=== PATIENT | female | born 1950 | race Two or more races ===

== ENCOUNTER 2024-10-10 15:37 | Emergency (ER) | payer MEDICARE, OTHER, SELFPAY ==
[2024-10-10 15:47] VITALS: BP 183/99
[2024-10-10 16:24] VITALS: BP 143/83
[2024-10-10 16:32] LABS: Hematocrit 39.6 % (37.0-47.0); Hemoglobin 13.6 g/dL (12.0-16.0); Mean Corp Hgb Conc. 34.3 g/dL (33.0-37.0); Mean Corpuscular Volume 83.4 fL (81.0-99.0); Nucleated Red Blood Cells % 0 %; Platelet Count 232 10^3/uL (130-400); Red Cell Dist. Width 13.6 % (11.5-14.5)
[2024-10-10 16:51] LABS: INR 0.97; PT 13.2 Sec (11.4-14.6)
[2024-10-10 16:52] LABS: APTT 28.1 Sec (23.4-35.0)
[2024-10-10 16:55] LABS: D-Dimer < 0.27 ug/mlFEU (0.00-0.50)
[2024-10-10 16:56] LABS: ALT (SGPT) 22 U/L (0-35); AST (SGOT) 22 U/L (14-36); Albumin 4.2 g/dl (3.5-5.0); Alkaline Phosphatase 80 U/L (38-126); Blood Urea Nitrogen 28 mg/dl (7-17); Calcium 9.7 mg/dl (8.4-10.2); Carbon Dioxide 27 mmol/L (22-30); Chloride 106 mmol/L (98-107); Glucose 149 mg/dl (70-99); Potassium 3.2 mmol/L (3.5-5.1); Sodium 139 mmol/L (135-145); Total Protein 7.0 g/dl (6.3-8.2); Troponin I < 0.012 ng/ml; eGFR > 60.00
[2024-10-10 17:00] VITALS: BP 140/89
[2024-10-10] MEDS: NSS 1000 IV (17:09)
[2024-10-10 17:27] LABS: TSH 2.10 uIU/ml (0.47-4.68)
[2024-10-10 17:48] LABS: Magnesium 2.1 mg/dl (1.6-2.3)
[2024-10-10 18:00] VITALS: BP 144/79
--- NOTE | 2024-10-10 18:15 | ED.GENMED ---
History of Present Illness
General
Chief Complaint: Chest Pain
Source: patient and family
Exam Limitations: none
Time Seen by Provider: 10/10/24 16:31
Nursing documentation reviewed up to this point in time: agreed with
History of Present Illness
History of Present Illness:
Patient is a 73-year-old female past medical history paroxysmal A-fib hypertension presenting to the emergency department after an episode where she felt palpitations and had a heart rate registering in the 200s on her Apple Watch she felt very
lightheaded and faint and had to go to the ground. She also shortness of breath. This lasted for a few minutes and she immediately came to the ER. She was told that she may have had an episode of SVT in the past via [facility] does have
a Linq device currently activated. Denies any ongoing symptoms during my assessment here in the ER.
Review of Systems
Review of Systems
Allergies reviewed?: Yes
All Other Systems: ROS reviewed and negative except as documented in HPI and ROS
Phy Exam
Physical Exam
Physical Exam:
GENERAL: Alert , in no apparent distress
EYE: pupils equal and reactive
NECK: Supple, no significant adenopathy.
ENT: o/p clr, mmm.
CARDIAC: Regular rate and rhythm .
LUNGS: Clear breath sounds bilaterally, no acute respiratory distress, no wheezes/rales/rhonchi
ABDOMEN: Soft, without focal tenderness, no r/g, no cvat
NEUROLOGICAL: Alert and oriented, no focal neuro deficits
SKIN: Warm and dry, skin intact.
MUSCULOSKELETAL: No edema, well perfused.
PSYCH: Normal and appropriate interaction.
Scores
Heart Score for Chest Pain Patients
STEMI patient?: No
History: Slightly or Non-Suspicious
ECG: Normal
Age: >/= 65 years
Risk Factors: 1 or 2 Risk Factors
Troponin: </= Normal Limit
Heart Score for Chest Pain Patients: 3
Heart Score Risk: 2.5% MACE over next 6 weeks
Course
Orders/Labs/Results
Orders:
Orders
10/10/24 15:39
Electrocardiogram (*1) Urgent
Reason for Study: Chest Pain
EKG- Treatment ONCE
10/10/24 16:29
Complete Blood Count/With Diff Urgent
Comprehensive Metabolic Panel Urgent
D-Dimer Urgent
Comment: ADD ON
Magnesium Urgent
Comment: ADD ON
PTT Urgent
Prothrombin Time Urgent
TSH Urgent
Comment: ADD ON
Troponin I Urgent
10/10/24 16:31
Add On- LAB Urgent
Tests Added?: d-dimer, TSH
10/10/24 17:06
Add On- LAB Urgent
Tests Added?: magnesium
0.9% Sodium Chloride 1000 ml [Nss] 1,000 ml IV BOLUS
Abnormal Lab Results
10/10/24
16:29
Potassium 3.2 L mmol/L
(3.5-5.1)
BUN 28 H mg/dl
(7-17)
Glucose 149 H mg/dl
(70-99)
10/10/24 16:29
10/10/24 16:29
Vital Signs
Initial and Last Documented VS:
Initial Vital Signs
Temp Pulse Resp BP Pulse Ox
98.6 F 112 20 183/99 99
10/10/24 15:47 10/10/24 15:47 10/10/24 15:47 10/10/24 15:47 10/10/24 15:47
Last Documented Vital Signs
Temp Pulse Resp BP Pulse Ox
98.6 F 86 14 133/78 97
10/10/24 15:47 10/10/24 19:00 10/10/24 19:00 10/10/24 19:00 10/10/24 19:00
MDM/Problems Addressed
MDM/Problems Addressed:
73-year-old female presenting to the emergency department today from the [facility] with concerns of an episode of very high heart rate lightheadedness shortness of breath. Symptoms now resolved. On arrival patient was tachycardic and hypertensive but
that is resolved within the first few minutes while being here in the ER without specific treatment. She is now asymptomatic. Labs were obtained that showed a slightly low potassium level that she claims is very chronic for her. Her BUN to
creatinine ratio was elevated she was given fluids. Troponin negative and D-dimer negative. She did have a recent surgery to her leg so PE was considered however with D-dimer negative no additional risk improved heart rate and symptoms PE is on
the. Additionally patient had her Linq monitor interrogated that showed a sewed of SVT that correlated with the timing of her symptoms. This likely explains her symptoms. In the ER she states that for multiple hours stable for close outpatient
follow-up with her communications administrator. Return precautions given.
*Pulse Oximetry
SaO2: 98
Oxygen Mode of Delivery: Room air
Patient hypoxic: no (97)
*Critical Care Note
Total Time (30-74mins, 75-104mins- exclusive of procedures): Not Applicable
ED Attending Note
-
Portions of this chart may have been created with voice recognition software.� Occasional wrong word or��sound alike� substitutions may have occurred due to the inherent limitations of voice recognition software.
Discharge Plan
Departure
Patient Disposition: Home (Routine Discharge)
Date of Disposition: 10/10/24
Time of Disposition: 18:15
Patient with high blood pressure during this ER visit?: No
Condition: Good
Covid-19: Not Applicable
Discharge Problem:
SVT (supraventricular tachycardia), Heart palpitations
Instructions: Chest Pain NON-[facility] [employer] Follow Up
Activity Restrictions/Additional Instructions:
You came to the emergency department today after what appears to be an arrhythmia. Seems to be consistent with SVT. The remainder of your workup here was reassuring. Please closely with your communications administrator within 1 week. Return for any worsening,
new or concerning symptoms.
Discharge Date and Time
Discharge Date/Time: 10/10/24 19:11
Print Language: ZAMBIAN
[2024-10-10 19:00] VITALS: BP 133/78
== END 2024-10-10 19:11 | disposition home or self-care (01) ==
LOC: EMR 15:37
PROVIDERS: Emergency Medicine; EMERGENCY PHYSICIAN Emergency Medicine
DX: I47.10 Supraventricular tachycardia, unspecified (principal); R00.2 Palpitations; I48.0 Paroxysmal atrial fibrillation; I10 Essential (primary) hypertension
CPT/HCPCS: 99283; 96360; 80053; 83735; 84443; 84484; 85025; 85379; 85610; 85730; 93005